=== PATIENT | male | born 1985 | race Caucasian/White ===

== ENCOUNTER 2018-03-29 16:31 | Emergency (ER) | payer BC ==
[~2018-03-29] VITALS: Ht 177.8 cm; Wt 81.6 kg
[~2018-03-29 16:31] MED LIST: AMOXICILLIN500 M3 PO; CYCLOBENZAPRINE10 MG PO; PREDNISONE10 MG PO; ULTRAM50 MG PO; ZYRTEC10 MG PO
[2018-03-29] MEDS ORDERED: VALTREX1000 MG PO (17:06)
[2018-03-29] MEDS ORDERED: VIBRAMYCIN100 MG PO (17:06)
[2018-03-29] MEDS ORDERED: DELTASONE20 M1 PO (17:06)
[2018-03-29] MEDS ORDERED: ARTIFICIAL TEA3.5 G1 OP (17:09)
[2018-03-29] MEDS ORDERED: ARTIFICIAL TEAR15 M9 OP (17:09)
== END 2018-03-29 17:15 | disposition home or self-care (01) ==
LOC: ED 16:31
PROVIDERS: Emergency Medicine
DX: G51.0 Bell's palsy (principal); Z88.8 Allergy status to other drugs, medicaments and biological substances; Z79.899 Other long term (current) drug therapy

== ENCOUNTER 2023-06-20 18:52 | Emergency (ER) | payer BC ==
[~2023-06-20] VITALS: Ht 177.8 cm; Wt 93.0 kg
[~2023-06-20 18:52] MED LIST changes: +ARTIFICIAL TEA3.5 G1 OP; +ARTIFICIAL TEAR15 M9 OP; +DELTASONE20 M1 PO; +VALTREX1000 MG PO; +VIBRAMYCIN100 MG PO
[2023-06-20] MEDS ORDERED: PENICILLIN VK500 MG PO (19:33)
[2023-06-20] MEDS ORDERED: Lidocaine Hydrochloride 15 ML UDC PO STA (19:33)
[2023-06-20] MEDS ORDERED: BENZOCAINE 20% 11.9 GM GEL T STA (19:33)
== END 2023-06-20 19:46 | disposition home or self-care (01) ==
LOC: ED 18:52
DX: K08.89 Other specified disorders of teeth and supporting structures (principal); Z88.8 Allergy status to other drugs, medicaments and biological substances